=== PATIENT | female | born 1980 | race Caucasian/White ===

== ENCOUNTER 2016-04-25 11:15 | Emergency (ER) | payer SELFPAY ==
--- NOTE | 2016-04-26 12:40 | ER ---
ADMIT: 04/25/2016 RM/LOC: ER [facility] MR#: [id number] [address] [place], [place] [id number] [address] [facility] [place] [id number] Emergency Room Report SEX: F AGE: 36 : 1980 DATE: 04/25/2016 ADDENDUM: A 36-year-old white female coming in with right shoulder pain and right thoracic pain after a fall off a ladder. No loss of consciousness. It was not at a trauma height. X-ray right shoulder and right rib are negative. I gave her tramadol 50 one p.o. q.6 p.r.n. pain, #20. Ice and follow up as needed. CONDITION ON DISCHARGE: Good. Reginald Gardner MD/ brad JOB #: [id number] CC: Reginald Gardner MD, Attending Physician
== END 2016-04-25 13:05 | disposition home or self-care (01) ==
LOC: ER 11:15
DX: S46.911A Strain of unspecified muscle, fascia and tendon at shoulder and upper arm level, right arm, initial encounter (principal); S20.211A Contusion of right front wall of thorax, initial encounter; F17.210 Nicotine dependence, cigarettes, uncomplicated; W11.XXXA Fall on and from ladder, initial encounter

== ENCOUNTER 2016-10-28 12:23 | Emergency (ER) | payer SELFPAY | END 2016-10-28 14:00 | disposition home or self-care (01) | DX: S63.502A Unspecified sprain of left wrist, initial encounter (principal); F17.210 Nicotine dependence, cigarettes, uncomplicated; Z90.49 Acquired absence of other specified parts of digestive tract; Z98.890 Other specified postprocedural states; Z88.6 Allergy status to analgesic agent; V84.9XXA Unspecified occupant of special agricultural vehicle injured in nontraffic accident, initial encounter; Y92.009 Unspecified place in unspecified non-institutional (private) residence as the place of occurrence of the external cause ==